=== PATIENT | female | born 1955 | race Two or more races ===

== ENCOUNTER 2023-10-29 13:55 | Emergency (ER) | payer OTHER ==
[~2023-10-29] VITALS: Ht 160 cm; Wt 63.5 kg
[2023-10-29] MEDS ORDERED: RESTORIL30 M1 PO (14:24)
[2023-10-29] MEDS ORDERED: LEVOXYL137 MCG (14:24)
[2023-10-29] MEDS ORDERED: NAMENDA5 MG PO (14:25)
[2023-10-29] MEDS ORDERED: PROTONIX40 MG PO (14:25)
[2023-10-29] MEDS ORDERED: KEPPRA500 MG (14:25)
[2023-10-29] MEDS ORDERED: ZOLOFT100 MG PO (14:26)
[2023-10-29] MEDS ORDERED: FOLIC ACID20 MG (14:26)
[2023-10-29] MEDS ORDERED: ARICEPT5 MG (14:26)
[2023-10-29 15:31] LABS: HEMATOCRIT 37.8 % (36.0-45.00); HEMOGLOBIN 12.8 g/dL (12.0-15.00); MEAN CELL VOLUME 83.8 fL (80.00-100.00); MEAN CORPUSCULAR HEMOGLOBIN 28.3 pg (27.00-32.0); MEAN CORPUSCULAR HGB CONC 33.8 g/dl (32.0-36.0); PLATELET COUNT 175 K/uL (150-450); RED BLOOD COUNT 4.51 M/uL (4.00-6.00); RED CELL DISTRIBUTION WIDTH 15.2 % (11.5-14.5)
[2023-10-29 15:52] LABS: ALBUMIN 3.7 gm/dL (3.4-5.0); BILIRUBIN TOTAL 1.12 mg/dL (0.3-1.2); GFR 54.81; GLOBULINA 3.7 G/DL (2.4-3.5); POTASSIUM 3.51 mEq/L (3.5-5.1); TOTAL PROTEIN 7.4 gm/dL (6.4-8.2)
== END 2023-10-29 16:10 | disposition home or self-care (01) ==
LOC: ER 13:56
PROVIDERS: General Practice
DX: R07.9 Chest pain, unspecified (principal); Z91.048 Other nonmedicinal substance allergy status; G40.802 Other epilepsy, not intractable, without status epilepticus